=== PATIENT | female | born 1985 | race Caucasian/White ===

== ENCOUNTER 2018-08-31 05:02 | Day surgery (SDC) | payer OTHER ==
[2018-08-30 12:31] VITALS: BMI 30.1
--- NOTE | 2018-08-31 07:37 | HP ---
History & Physical Update - Physical Physical: No Change - Assessment Assessment: No Change - Plan Plan: No Change (H&P reviwed , no changes)
[2018-08-31] MEDS ORDERED: SUCCINYLCHOLINE CHLORIDE 200 MG/10 ML SYRINGE ONE (07:54)
[2018-08-31] MEDS ORDERED: PROPOFOL 20 ML ONE ×3 (07:54→08:07)
[2018-08-31] MEDS ORDERED: DEXAMETHASONE SOD PHOSPHATE 4 MG/1 ML VIAL ONE (07:54)
[2018-08-31] MEDS ORDERED: MIDAZOLAM HCL 2 MG/2 ML SINGLE DOSE VIAL ONE (07:54)
[2018-08-31] MEDS ORDERED: oxyCODONE HCL 5 MG TABLET PO PRN (08:09)
[2018-08-31] MEDS ORDERED: IBUPROFEN 800 MG/8 ML IJ IVPB PRN (08:09)
[2018-08-31] MEDS ORDERED: ONDANSETRON 4 MG/2 ML VIAL IVPUSH PRN (08:09)
[2018-08-31] MEDS ORDERED: IBUPROFEN 600 MG TABLET (FP) PO PRN (08:09)
[2018-08-31] MEDS ORDERED: ELECTROLYTE-148 SOLN 1,000 ML IV SCH (08:15)
[2018-08-31] MEDS ORDERED: KETOROLAC TROMETHAMINE 30 MG/1 ML VIAL ONE (08:24)
--- NOTE | 2018-08-31 08:30 | OP ---
Operative Note - Note: Operative Date: 08/31/18 Operation: menometrorrhagia, EM polyp Findings: 2 m EM polyp ,EM atrophic Post-Operative Diagnosis: Same as Pre-op Surgeon: Adarsh Carson Anesthesia: General Specimens Removed: endometrial polyp, EMC Estimated Blood Loss (mls): 25 Drains & Tubes with Location: none Blood Volume Replaced (mls): 0 Operative Report Dictated: Yes
[2018-08-31] MEDS ORDERED: LACTATED RINGERS SOLUTION 1,000 ML IV SCH (09:15)
--- NOTE | 2018-08-31 10:01 | OP ---
DATE OF OPERATION: 08/31/2018 PREOPERATIVE DIAGNOSIS: Menometrorrhagia, endometrial polyp. POSTOPERATIVE DIAGNOSIS: Menometrorrhagia, endometrial polyp. PROCEDURE: Hysteroscopy, dilation and curettage and polypectomy. SURGEON: Adarsh Carson M.D. ANESTHESIA: General. ESTIMATED BLOOD LOSS: 25 mL OPERATION: Patient was taken to the operating room under adequate general anesthesia. Examination under anesthesia revealed the external genitalia to be normal, vagina was normal, cervix was clean, no lesion, the uterus was normal size anteverted, adnexa no masses palpable. Then with the weighted speculum in the vagina anterior lip of the cervix was grasped with the single-tooth tenaculum. The cervix was slightly dilated. Hysteroscope was introduced. There was a 2 cm endometrial polyp was seen in the lower uterine segment. Both cornual regions were identified and seen and endometrium appeared to be atrophic. Patient is on the control pill. No other abnormality was noted. The polyp was removed and then the endometrium gently was curetted. Patient tolerated the procedure well, left the OR in good condition. ADARSH CARSON M.D. /[id number]
[2018-08-31 11:00] VITALS: BP 118/85; PULSE 66; TEMP 98.1
== END 2018-08-31 10:55 | disposition home or self-care (01) ==
LOC: JASU-SURG 05:02
PROVIDERS: ATTEND Obstetrics & Gynecology
PROC: 0UB98ZX Excision of Uterus, Via Natural or Artificial Opening Endoscopic, Diagnostic (ICD-10-PCS; principal; 2018-08-31 08:00)
PROC: 0UDB7ZX Extraction of Endometrium, Via Natural or Artificial Opening, Diagnostic (ICD-10-PCS; 2018-08-31 08:00)
DX: N92.1 Excessive and frequent menstruation with irregular cycle (principal); N84.0 Polyp of corpus uteri
CPT/HCPCS: 88305-TC; 94760